=== PATIENT | male | born 1995 | race African-American/Black ===

== ENCOUNTER 2024-05-24 07:30 | Day surgery (SDC) | payer MEDICAID, SELFPAY ==
--- NOTE | 2024-05-21 07:00 | EKG_ITS ---
[facility] [place] [facility] Test Date: 2024-05-21 Pat Name: EDGARD PIÑA Department: Room: - Gender: Male Saw Feeder: SASHA : 1995 Requested By: Ricardo Mckinley Order Number: [id number] Reading MD: Ricardo Mckinley Measurements Intervals [place] Rate: 72 P: 54 MO: 171 QRS: 89 QRSD: 90 T: 43 QT: 336 QTc: 368 Interpretive Statements SINUS RHYTHM ST ELEVATION, PROBABLY EARLY REPOLARIZATION No previous ECG available for comparison /store/S0/[id number]/ecg/[id number].pdf
[2024-05-21 10:18] VITALS: BMI 28.5
[2024-05-21 10:35] LABS: Collection Type, Urine Clean Catch
[2024-05-21 11:12] LABS: Basophils % (Auto) 1 % (0-2.5); Eosinophils # (Auto) 0.2 Thou/mm3 (0.0-0.5); Eosinophils % (Auto) 3 % (0-10); Hematocrit 45.7 % (41.0-53.0); Hemoglobin 14.9 g/dL (13.5-16.0); Immature Granulocytes % (Auto) 0 % (0-0); Immature Granulocytes Auto 0.02 Thou/mm3 (0.00-0.00); Lymphocytes # (Auto) 2.2 Thou/mm3 (1.0-4.8); Lymphocytes % (Auto) 36 % (10-50); Mean Corpuscular HGB Conc 32.6 g/dl (31.0-37.0); Mean Corpuscular Hemoglobin 28.3 pg (25.0-35.0); Mean Corpuscular Volume 87 fL (80-100); Monocytes # (Auto) 0.5 Thou/mm3 (0.0-0.8); Monocytes % (Auto) 9 % (0-12); Neutrophils # (Auto) 3.1 Thou/mm3 (1.8-7.7); Neutrophils % (Auto) 51 % (37-80); Nucleated Red Blood Cell % 0 /100 WBC (0); Platelet Count 238 Thou/mm3 (140-440); RDW Standard Deviation 41.8 fL (35.1-43.9); Red Blood Count 5.27 Miln/mm3 (4.50-5.90)
[2024-05-21 11:24] LABS: Bilirubin,Urine Negative (Negative); Blood,Urine Negative (Negative); Clarity,Urine Clear (Clear/Hazy); Color,Urine Lt-Yellow (Lt Yel-Yel); Glucose, Urine Negative (Negative); Ketones,Urine Negative (Negative); Leukocyte Esterase,Urine Negative (Negative); Nitrite,Urine Negative (Negative); Protein,Urine Negative (Neg - Trace); RBC,Urine 5 /hpf (0-3); Specific Gravity,Urine 1.025 (1.001-1.035); Squamous Epithelial Cell,Urine < 1 /hpf (0-5); Urobilinogen,Urine Negative mg/dL (0.0-1.0); WBC,Urine 1 /hpf (0-5)
[2024-05-21 11:25] LABS: INR 1.1 (0.9-1.3); Partial Thromboplastin Time 28.6 Seconds (22.0-36.0); Prothrombin Time 11.8 Seconds (9.0-12.2)
[2024-05-21 11:29] LABS: Alanine Aminotransferase 37 U/L (10-49); Albumin, Serum 4.8 gm/dL (3.5-5.0); Albumin/Globulin Ratio 1.8 (1.2-2.2); Alkaline Phosphatase 84 U/L (46-116); Anion Gap 6 (7-16); Aspartate Amino Transferase 29 U/L (0-34); BUN/Creatinine Ratio 12 Ratio (12-20); Bilirubin,Total 0.6 mg/dL (0.3-1.2); Blood Urea Nitrogen 12 mg/dL (9-23); Calcium 9.6 mg/dL (8.3-10.6); Calcium (Corrected) 9.6 mg/dL (8.5-10.1); Carbon Dioxide 31.1 mMol/L (20.0-31.0); Chloride 103 mMol/L (98-107); Estimated Creatinine Clearance 129.3 mL/min (>60); Globulin 2.7 gm/dL (2.3-3.5); Glucose 93 mg/dL (74-106); Osmolality,Calculated 279 (275-295); Potassium 3.7 mMol/L (3.4-5.1); Sodium 140 mMol/L (136-145); Total Protein 7.5 gm/dL (5.7-8.2); eGFR > 60 See Note
--- NOTE | 2024-05-21 13:43 | ESHP_ITS ---
HPI Date of Admission May 24, 2024 Chief Complaint Chief Complaint: Multiple and large masses in the neck. HPI This 29-year-old black gentleman is brought to the hospital for excision of painful lumps in the neck of the likely to be enlarged lymph glands he is concerned that he may have a lymph node cancer. This will be removed. The risk benefits alternatives were discussed with the patient and informed consent is obtained. Past Medical History Past Medical History NEUROLOGIC: Negative Neurological Disorders CARDIAC: Negative Cardiac Disorders or Congestive Heart Failure RESPIRATORY: Negative Respiratory Disorders or Chronic Obstructive Pulmonary Disease (COPD) GASTROINTESTINAL: Negative Gastrointestinal Disorders or Hepatitis GENITOURINARY: Negative Genitourinary Disorders or Renal Disease MUSCULOSKELETAL: Positive Fractures (right hand); Negative Musculoskeletal Disorders ENT: Negative History of ENT Problems ENDOCRINE: Negative Endocrine Disorders, Diabetes Mellitus Type 1 or Diabetes Mellitus Type 2 HEMATOLOGIC: Negative Blood Disorders OTHER HISTORY: Positive Chicken Pox; Negative Hospitalization, Autoimmune Disease, Shingles, Blood Transfusions, Anesthesia Reactions or Cancer Family History FAMILY HISTORY: Negative Family Psychiatric Problems, Family Respiratory Disorders, Family Cardiac Disorders, Family Gastrointestinal Problems, Family Genitourinary Problems, Family Endocrine Disorders, Family Reproductive Disorders, Family Musculoskeletal Disorders, Family Cancer, Family Surgery or F amily Anesthesia Reaction Social History SMOKING STATUS: Never smoker Travel History EBOLA RISK: No Meds Home Medications and Allergies Home Medications ?Medication ?Instructions ?Recorded ?Confirmed ?Type No Known Home Medications 05/21/24 05/21/24 History Allergies Allergy/AdvReac Type Severity Reaction Status Date / Time No Known Allergies Allergy Verified 05/21/24 10:13 Exam Constitutional Constitutional: no acute distress Routine HEENT Exam Head: Present normocephalic Eye: Present EOMI and PERRL ENT: Present mucous membranes moist Routine Neck Exam Neck: Present supple and trachea midline Comments: Multiple enlarged lymph glands are palpable in the left neck are somewhat tender and they will be removed. Routine Chest/Breast/Axilla Exam Chest wall: Absent tenderness or mass Routine Respiratory Exam Respiratory: Present chest non-tender, lungs clear, normal breath sounds and no resp distress; Absent respiratory distress Routine Cardiovascular Exam Cardiovascular: Present RRR Routine Abdominal Exam Abdominal: Present soft and normoactive bowel sounds Routine Extremities Exam Extremities: Present full ROM Routine Skin Exam Skin: Present intact, dry and warm Routine Neurological Exam Neurological: Present alert, oriented X3 and CN II-XII intact Routine Psychiatric Exam Psychiatric: Present normal affect and normal thought process Assessment & Plan Problem List (1) Lymphadenopathy of head and neck: Status: Acute Plan Excision of lymphadenopathy in the neck. The risk benefits and alternatives were discussed with the patient and informed consent is obtained. Quality Measures Quality Measures none
[2024-05-24] VITALS (7 sets, daily range): BP systolic 118–154; BP diastolic 68–80; PULSE 70–90; RESP 13–20; TEMP 36.4–37.2; O2SAT 97–99; BMI 28.3
[2024-05-24] MEDS: RINGERS LACTATED 1000 ML 1,000 ML 60 ML IV (08:50)
--- NOTE | 2024-05-24 11:33 | SUR.PHASEII ---
pt received to [facility]. pt alert and oriented. denies pain and nausea. vss. breathing even and unlabored. dressing to neck cdi with metipore tape. report from nurse obrien and dr redding.
--- NOTE | 2024-05-24 11:58 | SUR.PHASEII ---
pt discharged with all belongings via wheelchair. vss. breathing even and unlabored. pt tolerated ice chips. dressing to neck remains cdi. discharge instructions gone over with patient and . both verbalize understanding, signed by .
--- NOTE | 2024-10-21 11:11 | PD.SUROPNT ---
Date of Procedure 05/24/24 Pre Op Diagnosis Multiple enlarging masses in the left side of the neck possible lymphoma. Post Op Diagnosis Multiple lipoma left side of neck Procedure Excision of a 2 masses in the left side of the neck turned out to be lipomas on 05/24/2024 Findings This patient had concern about the lumps in the left side of the neck thinking that he was getting lymphoma. These lumps were painful and that is why he is being removed. Procedure Description This patient was interviewed in the preoperative area. He has identified 2 masses in the left side of the neck in the middle of the neck region he feels that they may be cancerous and therefore he wants to have them removed. Site and site were marked. Risk benefits and alternatives were discussed with the patient and informed consent is obtained. Patient was taken to the operating room and general anesthesia was given in a satisfactory manner. The neck was prepped and draped in usual manner. Given that the both of these lumps were removed by similar technique. Local anesthesia was infiltrated with epinephrine and then transverse incision was made and deepened through the layers of skin and subcutaneous tissue and the mass was dissected free from surrounding soft tissue. Appears to be a lipoma. This was sent off as specimen. The fascia was approximated by 3-0 Vicryl interrupted stitches platysma was approximated by 3-0 Vicryl and skin by 4-0 nylon stitches. After this attention was paid to the lateral mass in the left neck which is more towards the sternomastoid. Again local anesthesia was infiltrated and a transverse incision is made and is deepened through the layers of skin and subcutaneous tissue and platysma. Hemostasis is achieved and the mass is removed in its entirety and this also is a lipoma. Hemostasis is achieved with fascia and platysma were approximated by 3-0 Vicryl interrupted sutures and skin by 4-0 nylon stitches. Patient tolerated the procedure very well. Anesthesia MAC Drains None. Implants None. Pathology / specimen Other (Lipoma excision #1 and lipoma excision #2 from the left mid neck.) Estimated Blood Loss 5 Condition Stable Disposition PACU Surgeon Ricardo Mckinley MD Surgical Staff Operation Date: 05/24/24 09:30 Case Staff Anesthesiologist: Luc Rausch RN First Assistant: Rosamaria Geronimo
== END 2024-05-24 11:58 | disposition home or self-care (01) ==
PROVIDERS: PCP Physician Assistant; Referring Provider Specialist; Visit Provider Specialist
PROC: (CPT 21552; principal; 2024-05-24 09:15)
DX: D17.0 Benign lipomatous neoplasm of skin and subcutaneous tissue of head, face and neck (principal); Z01.810 Encounter for preprocedural cardiovascular examination
CPT/HCPCS: 21552; 36415; 80053; 81001; 85025; 85610; 85730; 93005; A4217; A4649; J0690; J2250; J3010; J7120